=== PATIENT | female | born 1970 | race African-American/Black ===

== ENCOUNTER 2024-02-29 22:00 | Emergency (ER) | payer BC ==
[~2024-02-29] VITALS: Ht 160 cm; Wt 69.0 kg
[~2024-02-29 22:00] MED LIST: ASPI-1497 PO
[2024-02-29 22:46] VITALS: TEMP 98; O2SAT 100
[2024-03-01] MEDS ORDERED: LORA-250 PO (00:46)
[2024-03-01] MEDS: LORAZEPAM 1MG TABLET PO STA (00:53)
[2024-03-01 01:01] VITALS: BP 137/73; PULSE 65; RESP 18; O2SAT 98
== END 2024-03-01 01:11 | disposition home or self-care (01) ==
LOC: ER 22:00
DX: F41.9 Anxiety disorder, unspecified (principal); Z86.718 Personal history of other venous thrombosis and embolism
CPT/HCPCS: 99283